=== PATIENT | female | born 2000 | race Caucasian/White ===

== ENCOUNTER 2023-11-12 18:23 | Emergency (ER) | payer OTHER, SELFPAY ==
[2023-11-12 18:26] VITALS: BP 126/77; PULSE 109; RESP 18; TEMP 37.3; O2SAT 99; BMI 23.4
--- NOTE | 2023-11-12 18:33 | ED_ITS ---
HPI - General Adult General Chief complaint: Fever Stated complaint: 21 weeks , fever Time Seen by Provider: 11/12/23 18:29 History of Present Illness HPI narrative: Patient presents to the emergency department complaining of a fever. Patient states she was seen in urgent care on wednesday and was tested for covid and tested negative . Patient called OB and was told to come into the ER if she had a fever of 100.3 or above after taking tylenol to get more of a work up. Took tylenol at 1300. Currently afebrile. 23-year-old young woman presenting to the emergency department with concern of fever. Currently at about 22 weeks without known complications. Symptoms started about 3 days ago with a temperature up to 101. It has waxed and waned over the last 3 days. Did measure temperature at today at 100.3 I believe and was recommended to come to the emergency department for further evaluation. She is having no pains. No shortness of breath. No dysuria. No noted hematuria. Was seen then 2 days ago in urgent care and reports being screen negative for COVID and influenza and with normal urinalysis. No sore throat or rash. Related Data Home Medications ?Medication ?Instructions ?Recorded ?Confirmed No Known Home Medications 11/12/23 11/12/23 Allergies Allergy/AdvReac Type Severity Reaction Status Date / Time amoxicillin Allergy Mild Verified 11/12/23 18:31 Review of Systems Status of ROS: Reports: 6 or more systems reviewed and unremarkable except as noted in History and below [facility] Social History How often do you have a drink containing alcohol: never AUDIT-C Alcohol total score: 0 Non-prescribed substance use: denies use Exam Narrative: Exam Narrative: Very pleasant. Appears in good energy. Breathing easily. Lungs are clear. Heart in mildly elevated rate with trace systolic murmur not inconsistent with . Her abdomen is appropriately gravid soft and nontender. There is no flank pain. Extremities are well perfused without significant edema. Skin is warm and dry without rash. Neck is supple without lymphadenopathy. Oropharynx is unremarkable. Const: Vital Signs, click to edit/add: Vital Signs - 24 hr 11/12/23 18:26 11/12/23 18:53 Temperature 99.2 F 99.2 F Pulse Rate [Right Pulse Oximeter] 109 H Respiratory Rate 18 Blood Pressure [Ri ght Upper Arm] 126/77 Pulse Oximetry 99 Oxygen Delivery Me thod Room Air Documenting provider has reviewed patient's vital signs: yes Course Vital Signs Vital signs: Initial Vital Signs Temperature 99.2 F 11/12/23 18:26 Temperature Source Temporal Artery Scan 11/12/23 18:26 Pulse Rate 109 H 11/12/23 18:26 Pulse Rhythm Regular 11/12/23 18:26 Pulse Strength 3+ Normal 11/12/23 18:26 Respiratory Rate 18 11/12/23 18:26 Blood Pressure 126/77 11/12/23 18:26 Blood Pressure Mean 93 11/12/23 18:26 Blood Pressure Position Sitting 11/12/23 18:26 Pulse Oximetry 99 11/12/23 18:26 Oxygen Delivery Method Room Air 11/12/23 18:26 Vital Signs Temperature 99.2 F 11/12/23 18:26 Pulse Rate 109 H 11/12/23 18:26 Respiratory Rate 18 11/12/23 18:26 Blood Pressure 126/77 11/12/23 18:26 Pulse Oximetry 99 11/12/23 18:26 Oxygen Delivery Method Room Air 11/12/23 18:26 Temperature 99.2 F 11/12/23 18:53 Pulse Rate 109 H 11/12/23 18:26 Respiratory Rate 18 11/12/23 18:26 Blood Pressure 126/77 11/12/23 18:26 Pulse Oximetry 99 11/12/23 18:26 Oxygen Delivery Method Room Air 11/12/23 18:26 Medical Decision Making MDM Narrative Medical decision making narrative: No focal symptoms here for this fever. Will would agree screen for COVID con sidering community prevalence and another urinalysis. Duration has not been long enough nor fever persistence enough I think to be more concerned at this point. Urinalysis with 1+ blood and 10-25 red cells on microscopic; negative nitrite and leukocyte esterase. Was afebrile on arrival. Ultimately COVID and influenza testing were negative. Would continue to monitor closely for persistent and elevating fever. See patient discharge plan for further discussion Lab Data Lab results reviewed: Yes I reviewed the patient's lab results Labs: Lab Results 11/12/23 11/12/23 Range/Units 18:40 19:05 Urine Color Yellow (Yellow) Urine Appearance Clear (Clear) Urine pH 7.0 (5.0-8.5) Ur Specific [place] 1.015 (1.000-1.030) Urine Protein Negative (Negative) Urine Glucose (UA) Negative (Negative) Urine Ketones Negative (Negative) Urine Blood 1+ A (Negative) Urine Nitrite Negative (Negative) Urine Bilirubin Negative (Negative) Urine Urobilinogen 1.0 (0.2-1.0) Ur Leukocyte Esterase Negative (Negative) Urine RBC 10-25 A (0-2) Urine WBC 2-5 (0-5) Ur Squamous Epith Cells Few (None-Few) Urine Bacteria Few A (None) SARS-CoV-2 (PCR) Negative SARS-CoV-2 (Negative) Influenza Type A (PCR) Negative PCR FLU A (Negative) Influenza Type B (PCR) Negative PCR FLU B (Negative) Discharge Plan Discharge Clinical Impression: Fever Patient Disposition: Home, Self-Care Condition: Stable Additional Instructions: stay well hydrated. monitor for inability to control fever, fever lasting past the weekend. can take up to 850mg of acetaminophen per dose. Prescriptions: No Action No Known Home Medications Follow Up/Referrals: Provider,Not a Local [Primary Care Provider] - Stand Alone Forms: [employer] Info Instructions
[2023-11-12 18:53] VITALS: TEMP 37.3
[2023-11-12 19:12] LABS: Appearance Urine Clear (Clear); Bilirubin Urine Negative (Negative); Blood Urine 1+ (Negative); Color Urine Yellow (Yellow); Glucose Urine Negative (Negative); Ketones Urine Negative (Negative); Leukocyte Esterase Urine Negative (Negative); Nitrite Urine Negative (Negative); Protein Urine Negative (Negative); Specific Gravity Urine 1.015 (1.000-1.030)
[2023-11-12 19:34] LABS: PCR FLU A Negative PCR FLU A (Negative); PCR FLU B Negative PCR FLU B (Negative); SARS PCR* Negative SARS-CoV-2 (Negative)
[2023-11-12 19:35] LABS: Bacteria Urine Few; Squamous Epithelial Cell Urine Few (None-Few)
== END 2023-11-12 19:53 | disposition home or self-care (01) ==
PROVIDERS: Emergency Provider Family Medicine
DX: R50.9 Fever, unspecified (principal)
CPT/HCPCS: 81001; 87086; 87631; 99282; 99283; 99284

== ENCOUNTER 2024-05-22 20:06 | Emergency (ER) | payer OTHER, SELFPAY ==
--- OUTSIDE RECORDS SUMMARY | 2024-05-22 20:08 | XMS_ITS | Clinical Summary ---
Author Organization [employer] [facility] Address [address] [place] [id number] Care Team Providers Care Facer Operator Name Role Phone Pcp, No Primary Care Provider Unavailabl e Allergies Active Allergy Reactions Criticality Noted Date Comments Amoxicillin Rash Low 09/13/2002 Diffuse rash one day on Amox. As a baby Has taken cephalosporins without issues Medications vit/iron fum/folic ac ( 1 + 1 ORAL) Take 1 Tablet by mouth once daily. Active acetaminophen (TYLENOL EXTRA STRGTH) 500 mg tabletIndicati ons: (spontaneous vaginal delivery) Take 2 Tablets (1,000 mg) by mouth every 6 hours. Max acetaminophen dose: 4000mg in 24 hrs. 100 Tablet 03/27/2024 7:53 AM REHABILITATION THERAPY AIDE 5 Active ibuprofen (ADVIL; MOTRIN) 600 mg tabletIndicati ons: (spontaneous vaginal delivery) Take 1 Tablet (600 mg) by mouth every 6 hours. Maximum of 3200 mg in 24 hours. 100 Tablet 03/27/2024 7:53 AM REHABILITATION THERAPY AIDE 5 Active sennosides (SENNA) 8.6 mg tabletIndicati ons: (spontaneous vaginal delivery) Take 1-2 Tablets (8.6-17.2 mg) by mouth 2 times daily if needed for Constipation. 60 Tablet 03/27/2024 7:53 AM REHABILITATION THERAPY AIDE 5 Active Active Problems Problem Noted Date Diagnosed Date (spontaneous vaginal delivery) 03/26/2024 Encounter for elective induction of labor 2024 Anemia 12/22/2023 Susceptible to varicella (non-immune), currently 11/17/2023 Encounter for supervision of normal first in third trimester 08/05/2023 Attention deficit hyperactivity disorder, combin ed type 05/02/2019 Keratosis pilaris 12/28/2015 Encounters Date Type Department Care Team Description 03/28/2024 Telephone [facility] [place] [address] [facility] [address] [place] [address] [facility] 03/26/2024 9:00 AM REHABILITATION THERAPY AIDE Anesthesia Event [facility] [address] [place] [address] Madison Fish MD 03/25/2024 7:33 PM REHABILITATION THERAPY AIDE - 03/27/2024 5:45 PM REHABILITATION THERAPY AIDE Hospital Encounter [facility] [address] [place] [address] Krista Silva MD Abdi, Mayra Tuttle MD (spontaneous vaginal delivery) (Primary Dx) Discharge Disposition: Home Self Care 03/25/2024 Travel from Last 3 Months Social History Tobacco Use Types Packs/Day Years Used Date Smoking Tobacco: Never Smokeless Tobacco: Never Tobacco Cessation:Counseling Given: Not Answered Alcohol Use Standard Drinks/Week Comments Not Currently 0 (1 standard drink = 0.6 oz pur e alcohol) Social Connections Answer Date Recorded Do you often feel lonely or isolated from those around you? 0 03/26/2024 Financial Resource Strain Answer Date R ecorded Difficulty of Paying Living Expenses 3 03/26/2024 Difficulty of Paying Living Expenses Not on file 03/26/2024 Food Insecurity Answer Date Recorded Do you worry your food will run out before you are able to buy more? 1 03/26/2024 Transportation Needs Answer Date Record ed Does lack of transportation keep you from medica l appointments? 1 03/26/2024 Does lack of transportation keep you from work, meetings or getting things that you need? 1 03/26/2024 Housing Stability Answer Date Recorded What is your housing situation today? 1 03/26/2024 Interpersonal Safety Answer Date Record ed Are you being hit, kicked, p ushed or yelled at (see row info)? No 03/25/2024 Interpersonal Safety Abuse 12 - 18 Not on file 03/25/2024 Interpersonal Safety Ambulatory Vulnerability No t on file 03/25/2024 Utilities Answer Date Recorded Do you have trouble paying f or utilities (for example, heat, electricity, water, phone)? 1 03/26/2024 Comments No Sex and Gender Information Value Date Recorded Sex Assigned at Not on file Legal Sex Female 5:32 PM REHABILITATION THERAPY AIDE Gender Identity Not on file Sexual Orientation Not on file Obstetrics History Para Term AB IAB SAB Ectopic Multiple Livin g Live Births 1 1 1 0 1 1 Date Outcome GA Total Labor Labor/2nd/3rd Weight Sex Type Anes PTL Rosa A1 A5 Name Clin 2024 Term 40w 4d 15h 58m 15h 00m/0h 56m/0h 02m 4.23 kg (9 lb 5.2 oz) M Vag-S pont Epidur al Livin g 9 9 Walker Deisy Anthony, Mayra castro MD Complications:None Delivery Location:Hospital ( [address]) Comments: Summary Episode Dates Number of Fetuses Estimated Date of Delivery 03/15/2024 - Present (05/22/2024) 1 03/22/2024 (set by Rafia Conner RN on 03/25/2024 based on Last Menstrual Period on 06/16/2023 (Exact Date)) Dating Summary Based On IZZY GA Diff Last Menstrual Period on 06/16/2023 (Exact Date) 03/22/2024 Working Overview and Plan :Kothari sex:Male Support person:Randy, boyfriend Delivery Plans Planned delivery method:Vaginal Vitals Pregravid Weight Height TWG (As of 05/22/2024) Pregrav id BMI 1.676 m (5' 6) Date GA Fund Present FHR Mvmt BP Weight Edema Alb Glu Ket Dil/ Eff/Sta 5 40w4d Inpatient data not displayed here. See encounter summary. 5 40w4d Inpatient data not displayed here. See encounter summary. 5 40w4d Inpatient data not displayed here. See encounter summary. Notes Progress Notes - Hospital En counter - 03/27/2024 - GA:40w4d 03/27/2024 - 40w4d - Domenica Oakley RN Problem: DISCHARGE PLANNING Goal: DISCHARGE PREPARATION IS COMPLETED IN A TIMELY MANNER Outcome: Progressing Note: Vaginal Discharge Data: Vital signs stable, afebrile and assessments within normal limits. Tolerating activity and diet. Voiding without difficulty. Pain within patient determined acceptable limits. Perineum appears to be healing well. Positive attachment behaviors observed. Discharge outcomes on the care plan met. Action: Review of care plan, teaching sheet and discharge instructions done with patient. Response: Discharged at 1745 via Ambulatory BILITATION THERAPY AIDE 03/27/2024 - 40w4d - Yovani Anthony MD Day 1: Vaginal Delivery Patient Active Problem List Diagnosis Code Encounter for elective induction of labor Z34.90 Anemia D64.9 Attention deficit hyperactivity disorder, combined type F90.2 Keratosis pilaris L85.8 Susceptible to varicella (non-immune), currently O09.899, Z28.39 Encounter for supervision of normal first in third trimester Z34.03 (spontaneous vaginal delivery) O80 Christal Davison is doing well. Pain well controlled with current medication management. Lochia moderate. Eating, drinking, voiding and ambulating without issues. Mood is good. Baby is doing well. Working on /pumping. O. Vitals: 03/26/24 1600 03/26/24 1610 03/26/24 1700 03/27/24 0041 BP: 108/56 112/62 123/63 101/54 Cuff Size: Adult Regular Adult Regular Pulse: 85 90 92 68 Resp: 16 16 Temp: 98.6 F (37 C) 97.8 F (36.6 C) SpO2: 97% 97% Weight: Height: Gen: NAD Abdomen: soft, non tender, fundus firm below U Pelvic: deferred Extremities: no edema/calf tenderness Labs: Recent Labs 03/25/24 2145 HGB 11.8 L A/P. Laney Hammond is a pleasant 23-year-old female P1 PPD #1 s/p , uncomplicated. Doing well. Plan routine cares. support. To discuss contraception at routine visit. Dispo: d/c home later this afternoon. To follow up for routine visit in 6 weeks. Mayra Anthony MD .................... 03/27/2024 7:28 AM DOS 03/27/2024 BILITATION THERAPY AIDE 03/27/2024 - 40w4d - Hayley Pedro RN Student charting has been reviewed and approved for this patient s record. BILITATION THERAPY AIDE 03/26/2024 - 40w4d - Danita Kwok RN Laney Hammond transferred to [facility] at 1640 in stable condition. Baby is transferred with mother. Patient meets criteria for discharge after epidural as demonstrated by return to pre-delivery vital sign range, sensory and motor response, and ability to ambulate. Was patient able to void post delivery? Yes Report given to PPRN at 1645 and security bands and transmitter double checked. Danita Kwok RN .................... 03/26/2024 5:14 PM BILITATION THERAPY AIDE 03/26/2024 - 40w4d - Alesha Mckeon RN Problem: PROGRESSION OF LABOR Goal: PATIENT DEMONSTRATES NORMAL PROGRESSION THROUGHOUT LABOR AND WITHOUT COMPLICATIONS Outcome: Met Goal Goal: PRESUMED ADEQUATE OXYGENATION THROUGHOUT LABOR AND Outcome: Met Goal Goal: PATIENT DEMONSTRATES PHYSIOLOGIC STABILITY Outcome: Met Goal Problem: MATERNAL STABILITY Goal: PATIENT MAINTAINS GENERAL BODY SYSTEM STABILITY THROUGHOUT Outcome: Met Goal Problem: HEMODYNAMIC STABILITY Goal: BLOOD PRESSURE WILL BE MAINTAINED BETWEEN DEFINED PARAMETERS THROUGHOUT HOSPITAL STAY. Outcome: Met Goal Problem: NEUROLOGIC STABILITY Goal: PATIENT MAINTAINS BASELINE NEURO STATUS AND SEIZURE FREE THROUGHOUT HOSPITALIZATION Outcome: Met Goal Problem: STABILITY Goal: PATIENT HAS A NONPALPABLE BLADDER. Outcome: Met Goal Problem: RISK FOR INFECTION Goal: PATIENT AND FETUS REMAIN FREE FROM S/S INFECTION Outcome: Met Goal Problem: EMOTIONAL Goal: PATIENT/FAMILY REPORTS A POSITIVE EXPERIENCE. Outcome: Met Goal Goal: PATIENT/FAMILY DEMOS ATTACHMENT/BONDING BEHAVIORS. Outcome: Met Goal Problem: PAIN/COMFORT Goal: PATIENT'S PAIN IS </= STATED ACCEPTABLE COMFORT GOAL. Outcome: Met Goal Goal: OXYGEN PATHWAY IS MAINTAINED DURING REGIONAL ANESTHESIA/ANALGESIA ADMINISTRATION Outcome: Met Goal Problem: SAFETY Goal: INFANT/MOTHER SAFETY IS MAINTAINED DURING LABOR AND DELIVERY PERIOD Outcome: Met Goal Goal: PATIENT/FAMILY UNDERSTANDS LABOR/DELIVERY PROCESS AND CARES INVOLVED. Outcome: Met Goal Goal: CRITICAL LAB VALUES REPORTED TO PROVIDERS NECESSARY THROUGHOUT HOSPITALIZATION Outcome: Met Goal Goal: PATIENT WILL BE KNOWLEDGEABLE REGARDING NEWLY ORDERED MEDS, INTENDED AND SIDE EFFECTS OF EACH Outcome: Met Goal Data: Boy baby born at 1426. Maternal medical/ history and risk factors are: anemia, ADHD, varicella non-immune. Significant maternal medications: oxytocin. GBS: neg. Interventions at were mutual fundal check with provider, provider repaired tear. Apgars 9 and 9 ROM X 2 hours: Fluid by Observation: clear. Delivery remarkable for: . Response: Positive bonding behaviors observed. Present in room at delivery: jt Nieves Dr. Abdi, Betsy RN, Leana RODRIGUEZ. BILITATION THERAPY AIDE 03/26/2024 - 40w4d - Yovani Anthony MD Labor Progress Note Patient Active Problem List Diagnosis Code Encounter for elective induction of labor Z34.90 Anemia D64.9 Attention deficit hyperactivity disorder, combined type F90.2 Keratosis pilaris L85.8 Susceptible to varicella (non-immune), currently O09.899, Z28.39 Encounter for supervision of normal first in third trimester Z34.03 Christal Davison is starting to get more comfortable s/p epidural placement. O. Vitals: 03/26/24 1015 03/26/24 1030 03/26/24 1045 03/26/24 1100 BP: 115/70 116/64 113/70 112/66 Pulse: 75 76 77 75 Resp: Temp: SpO2: Weight: Height: Gen: NAD Abdomen: Soft, gravid, non tender Pelvic: deferred (last exam by RN /-1 @ 0755) FHT: cat 1 [place]: q 3-4.5 min Labs: Rh pos, GBS neg A/P. Laney Hammond is a at 40w4d admitted for elective induction of labor. #) Labor S/p cook cervical balloon catheter and 2 doses of oral misoprostol with improvement in cervical exam. Plan pitocin for continued augmentation of labor. Titrate as appropriate. Consider AROM for augmentation of labor. #) Fetus Cat 1 tracing, continuous monitoring. EFW 76%ile at 36w5d. #) GBS Negative No Amp indicated #) Pain Epidural in place, working well. Mayra Anthony MD .................... 03/26/2024 9:08 AM DOS 03/26/2024 Addendum: Laney remains comfortable with epidural. SVE 7/80/0. After informed consent, AROM performed for clear fluid. Pitocin at 2 mU. FHT cat 1. Continue to monitor. Mayra Anthony MD .................... 03/26/2024 1:01 PM BILITATION THERAPY AIDE BILITATION THERAPY AIDE BILITATION THERAPY AIDE 03/26/2024 - 40w4d - Rafia Conner RN Data: Patient admitted to room 3632 at 1940 . Pt is a . record reviewed, OB/Medical history and risk factors are significant for varicella non immune, ADHD, and anemia. Gestational age 40.3. Vital Signs per doc flowsheet. movement present. Patient reports elective induction as reason for admission. Support persons Randy, boyfriend present. Action: Verbal consent for EFM, external monitors applied. Admission assessment completed. Patient and support persons educated on labor process. Patient instructed to report change in movement, contractions, vaginal leaking of fluid or bleeding, abdominal pain, or any concerns related to the to her nurse/physician. Patient oriented to room, call light within reach. Response: Dr Silva informed of patient's arrival. Patient verbalized understanding of education and verbalizes agreement with plan. Patient coping with labor currently, open to an epidural when labor is more advanced. Plan: Plan per physician is cook catheter and PO cytotec as contractions pattern allows. Rafia Conner RN .................... 03/25/2024 10:42 PM BILITATION THERAPY AIDE Last Filed Vital Signs Vital Sign Reading Time Taken Comments Blood Pressure 112/55 03/27/2024 1:47 PM REHABILITATION THERAPY AIDE Pulse 68 03/27/2024 1:47 PM REHABILITATION THERAPY AIDE Temperature 36.7 C (98 F) 03/27/2024 1:47 PM REHABILITATION THERAPY AIDE Respiratory Rate 18 03/27/2024 1:47 PM REHABILITATION THERAPY AIDE Oxygen Saturation 98% 03/27/2024 1:47 PM REHABILITATION THERAPY AIDE Inhaled Oxygen Concentration - - Weight 75.6 kg (166 lb 11.2 oz) 03/25/2024 7:42 PM REHABILITATION THERAPY AIDE Height 167.6 cm (5' 6) 03/25/2024 7:42 PM REHABILITATION THERAPY AIDE Body Mass Index 26.91 03/25/2024 7:42 PM REHABILITATION THERAPY AIDE Plan of Treatment Health Maintenance Due Date Last Done Comments Tdap 2012 Depression screening for age 12+ 2013 HPV series for age 9-26 (1 - 3-dose series) 2016 BMI (ht and wt on same day) for age 18+ 06/13/2019 Hepatitis C screening for ag e 18-79 06/13/2019 Tetanus booster 2021 Pap test for age 21-65 2022 COVID-19 vaccine series (2023- season) 2023 02/19/2022, 11/12/2020, 10/11/2020 Influenza Vaccine (#1) 2023 HIV for age 15-65 Completed 08/05/2023 Pneumococcal series for age 6-49 Aged Out No longer eligible b ased on patient's age to complete this topic Procedures Procedure Name Priority Date/Time Associated Diagnosis Comments HCHG TUBING PR5 Routine 03/26/2024 9:00 AM REHABILITATION THERAPY AIDE HCHG LABOR EPIDURAL INITIAL Routine 03/26/2024 9:00 AM REHABILITATION THERAPY AIDE EPIDURAL BLOCK Routine 03/26/2024 9:00 AM REHABILITATION THERAPY AIDE HCHG DRSG PR1 Routine 03/26/2024 9:00 AM REHABILITATION THERAPY AIDE HCHG KIT EPIDURAL PR10 Routine 03/26/2024 9:00 AM REHABILITATION THERAPY AIDE TREPONEMA PALLIDUM Today 03/25/2024 9: 46 PM REHABILITATION THERAPY AIDE TYPE & SCREEN Today 03/25/2024 9:45 PM REHABILITATION THERAPY AIDE PLATELET COUNT Today 03/25/2024 9:45 PM REHABILITATION THERAPY AIDE HEMOGLOBIN Today 03/25/2024 9:45 PM REHABILITATION THERAPY AIDE HEMOGLOBIN EXTERNAL Routine 02/28/2024 4 :46 PM REHABILITATION THERAPY AIDE HIV EXTERNAL Routine 08/05/2023 12:06 PM CDT from Last 3 Months or Most Recently Relevant to Health Maintenance Results * HCHG KIT EPIDURAL PR10, HCHG DRSG PR1, EPIDURAL BLOCK, HCHG LABOR EPIDURAL INITIAL, HCHG TUBING PR5(03/26/2024 9:00 AM REHABILITATION THERAPY AIDE) Narrative Madison Fish MD - 03/26/2024 9:00 AM REHABILITATION THERAPY AIDE Madison Fish MD 03/26/2024 9:14 AM Labor Analgesia Labor Analgesia Type: epidural Patient location during procedure: OB Time Requested: 03/26/2024 8:55 AM Start time: 03/26/2024 9:00 AM End time: 03/26/2024 9:13 AM Diagnosis: planned vaginal delivery and labor pain ASA: 2 Completed: patient identified, risks and benefits discussed, timeout performed, chloraprep used and completely dried prior to procedure and surgical consent Patient position: sitting Patient monitoring: continuous pulse oximetry and blood pressure Approach: midline Prep: chloraprep and sterile drape Lumbar location: L3-4 Skin Infiltration: lidocaine 1% REAL: saline Epidural Location: lumbar Needle and Epidural Catheter Needle type: Tuohy Needle gauge: 17 G Needle length: 3.5 in Needle insertion depth: 4 cm Catheter type: closed tip Catheter size: 19 G Aspiration of Catheter: negative Catheter at skin depth: 10 cm Test dose: lidocaine 1.5% with epinephrine 1:200,000 Test dose amount: 3 ml Test dose result: negative Assessment Events: no complications Madison Fish MD ANESTHESIA PX NOTE ORD ERABLES Final Result * Treponema Pallidum (03/25/2024 9:46 PM REHABILITATION THERAPY AIDE) TREPONEMA PALLIDUM Non-Reacti ve Non-Reacti ve 03/25/2024 10:45 PM REHABILITATION THERAPY AIDE [facility] [employer] [facility] Blood BLOOD SPECIMEN / Unknown Butterfly / Unknown 03/25/2024 9:46 PM REHABILITATION THERAPY AIDE 03/25/2024 10:12 PM REHABILITATION THERAPY AIDE Krista Silva MD SEND OUTS Final Resul t Performing Organization Address City/[facility]/ZIP Co de Phone Number [facility] [address] [place] [address], * TYPE & SCREEN (03/25/2024 9:45 PM REHABILITATION THERAPY AIDE) ABORH O Rh Positive 03/25/2024 10:56 PM REHABILITATION THERAPY AIDE [facility] BLOOD BANK ANTIBODY SCREEN Negative Negative 03/25/2024 10:56 PM REHABILITATION THERAPY AIDE [facility] [employer] LAB-[facility] BLOOD BANK SPECIMEN EXPIRATION DATE/TIME 03/28/24 23:59 03/25/2024 10:56 PM REHABILITATION THERAPY AIDE [facility] [employer]-[facility] BLOOD BANK Blood BLOOD SPECIMEN / Unknown Butterfly / Unknown 03/25/2024 9:45 PM REHABILITATION THERAPY AIDE 03/25/2024 10:12 PM REHABILITATION THERAPY AIDE Krista Silva MD BLOOD BANK Final Resul t [facility]ock[facility]TR[facility] BLOOD BANK [address] [place] [id number] [place] [address] * (ABNORMAL) Platelet Count (03/25/2024 9:45 PM REHABILITATION THERAPY AIDE) PLATELET COUNT 164 140 - 440 thou/cu mm 03/25/2024 10:18 PM REHABILITATION THERAPY AIDE [facility] TRAL LABORATORY MPV 11.3(H) 6.5 - 11.0 fL 03/25/2024 10:18 PM REHABILITATION THERAPY AIDE [facility] TRA LABORATORY Blood BLOOD SPECIMEN / Unknown Butterfly / Unknown 03/25/2024 9:45 PM REHABILITATION THERAPY AIDE 03/25/2024 10:12 PM REHABILITATION THERAPY AIDE Krista Silva MD HEMATOLOGY Final Resul t [facility] [address] [place] [id number], [place] * (ABNORMAL) Hemoglobin (03/25/2024 9:45 PM REHABILITATION THERAPY AIDE) HEMOGLOBIN 11.8(L) 12.0 - 16.0 g/dL 03/25/2024 10:18 PM REHABILITATION THERAPY AIDE [facility] MCV 93 80 - 100 fL 03/25/2024 10:18 PM REHABILITATION THERAPY AIDE [facility] Blood BLOOD SPECIMEN / Unknown Butterfly / Unknown 03/25/2024 9:45 PM REHABILITATION THERAPY AIDE 03/25/2024 10:12 PM REHABILITATION THERAPY AIDE Krista Silva MD HEMATOLOGY Final Resul t [facility] [address] [place] [id number], [place] * HEMOGLOBIN EXTERNAL (02/28/2024 4:46 PM REHABILITATION THERAPY AIDE) EXTERNAL HEMOGLOBIN 10.9 g/dL [facility] Blood BLOOD SPECIMEN / Unknown [facility] LABORAT[facility] Final Result [facility] [employer] [facility]AL LAB [address] [place] [address] * HIV EXTERNAL (08/05/2023 12:06 PM CDT) EXTERNAL HIV Negative [facility] [employer] C[facility]AL LAB Blood BLOOD SPECIMEN / Unknown [facility] Final Result [employer] [facility] [address] [place] [address] from Last 3 Months or Most Recently Relevant to Health Maintenance Insurance [facility] [employer] MEDICAID Advance Directives * Full Code (Latest Code Status on File) Date Activated Date Inactivated Comments 03/25/2024 8:11 PM 03/27/2024 8:07 PM Question Answer Comments Code Status Discussion: Reviewed Preferences Care Teams Facer Operator Relationship Specialty Start Date End Date Pcp, No . PCP - General 03/15/24
--- OUTSIDE RECORDS SUMMARY | 2024-05-22 20:08 | XMS_ITS | Clinical Summary ---
Author Organization [employer] Address [address], [place] [address] Care Team Providers Care News Cameraman Name Role Phone Josefina Bolanos MD Primary Care Provider [phone] Source Comments You are receiving this document as you are listed as the primary care provider,follow-up provider, or the patient has been referred to you for consultation.This is in compliance with the Medicare andMedicaid EHR Incentive Program,which states Providers who transition their patient to another setting of careor provider of care or refers their patient to another provider of care shouldprovide summary care record for each transition of care or referral. [employer] Allergies Active Allergy Reactions Criticality Noted Date Comments Amoxicillin Rash Low 09/13/2002 Diffuse rash one day on Amox. As a baby Has taken cephalosporins without issues Medications * This document contains information received from the source organization and may not represent a complete record from that organization. amphetamine-dext roamphetamine (ADDERALL) 10 MG tablet Take 1 Tablet (10 mg) by mouth two times a day. 180 Tablet 4 Active Additional Information Patient not taking.Reported on 03/20/2024 Prenat MV-Min w/[id number]-[id number]-UJR ( COMPLETE OR) Active Misc. Devices (BREAST PUMP) Breast pump 1 Each 4 Active Additional Information Patient not taking.Reported on 03/20/2024 norethindrone, contraceptive, (MICRONOR) 0.35 MG tabletIndication s:Encounter for BCP ( control pills) initial prescription Take 1 Tablet (0.35 mg) by mouth daily. 84 Tablet 3 5 05/16/19 26 Active Active Problems Problem Noted Date Diagnosed Date Anemia 12/22/2023 Susceptible to varicella (non-immune), currently 11/17/2023 Encounter for supervision of normal first in first trimester 08/05/2023 CAREPLAN: CONTROLLED SUBSTANCE 11/08/2019 Overview (12/19/2022): OK for adderall 10 mg PO BID, #180 every 90 days, good from 11/28-11/29. Josefina Bolanos MD 12/18/2022, 3:10 PM Attention deficit hyperactivity disorder, combin ed type 05/02/2019 Keratosis pilaris 12/28/2015 Resolved Problems Problem Noted Date Diagnosed Date Resolved Date Recurrent urinary tract infection 08/05/2023 02/03/2024 Encounters Date Type Department Care Team Description 05/22/2024 4:20 PM CDT E-Visit Obstetrics & Gynecology at [address] [address] Hernandez Banegas MD Chief Comp: Medication Questions 05/15/2024 1:40 PM CDT Visit Obstetrics & Gynecology at [address] [phone] Shagufta Galvez, IRRIGATION ENGINEER, IMMIGRATION SPECIALIST POST- 03/20/2024 9:00 AM BUSINESS SERVICES TECH Routine Obstetrics & Gynecology at [address] [address] Hernandez Banegas MD SUBSEQUENT VISIT 03/15/2024 4:20 PM BUSINESS SERVICES TECH Routine Obstetrics & Gynecology at [address] [address] Hernandez Banegas MD Ob Exam Subsequent (Pn care.39w0d/Discuss Lab results) 03/09/2024 4:00 PM BUSINESS SERVICES TECH E-Visit Obstetrics & Gynecology at [address] [address] Kaelyn Mccallum APRN, CNP Chief Comp: RESULTS, TEST 03/09/2024 11:50 AM BUSINESS SERVICES TECH Lab Visit Laboratory at [address] [address] Elevated blood pressure affecting in third trimester, antepartum 03/09/2024 11:40 AM BUSINESS SERVICES TECH Routine Obstetrics & Gynecology at [address] [address] Kaelyn Mccallum APRN, CNP 03/09/2024 Telephone Obstetrics & Gynecology at [address] [address] Kaelyn Mccallum APRN, CNP Pre-visit Planning 02/28/2024 4:40 PM BUSINESS SERVICES TECH Lab Visit Laboratory at [address] [address] Anemia, unspecified type 02/28/2024 4:20 PM BUSINESS SERVICES TECH Routine Obstetrics & Gynecology at [address] [address] Hernandez Banegas MD SUBSEQUENT VISIT 02/28/2024 2:40 PM BUSINESS SERVICES TECH Ancillary Procedure operations representative Ultrasound at [address] [address] Hernandez Banegas MD Encounter for supervision of normal first in third trimester; Uterine size-date discrepancy in third trimester 02/23/2024 1:00 PM BUSINESS SERVICES TECH E-Visit Obstetrics & Gynecology at [address] [address] Hernandez Banegas MD Dx: Anemia, unspecified type (Primary Dx) from Last 3 Months Immunizations Immunization Administration Dates Next Due 9vHPV (Gardasil 9) 11/05/2017,12/18/2015 Adult RSV Abrysvo 02/21/2024 DTaP 06/16/2006, 4,2001,2001,2001 Flu Vac (3+ yrs) 02/22/2012, 7,04/27/2006,2004 Flu Vac Preserv Free (6-35 mo) 03/06/2003,2002 Fluzone Qiv Multidose Vial 0 .25 (6-35 Mos) 01/15/2022 H1N1 MIV CSL 3+ Yr Presev-fr ee (Inj)([facility]) 02/22/2009 Hib/HBV 06/13/2002,2001,2001 IPV (Polio) 06/16/2006, 2,2001,2001 Influenza (Flucelvax) 12/03/2022 Influenza (Flucelvax), Prese rv Free QIV 12/03/2022 Influenza IIV4 (Quadrivalent ) 0.5mL (73579) 12/18/2015,01/11/2015 Influenza Vaccine, Nasal ([facility]) 02/22/2009 Influenza ccIIV3 6 months+ (Flucelvax) 11/22/2023 MCV4 (Menactra) 07/17/2013 MCV4 Menveo 2m.+ (two vial) 11/05/2017 MMR 06/16/2006,10/18/2002 Moderna Bivalent 12+ 02/19/2022 Moderna Monovalent 12+ 11/12/2020,10/11/2020 Pneumococcal 7, PED 2001,2001,2001 TB Skin Test (PPD) 03/10/2022,02/24/2022 Tdap 12/22/2023,07/17/2013 Varicella 12/07/2006,10/18/2002 Family History Medical History Relation Name Comments High Cholesterol Father Hypertension Father No Known Problems Mother No Known Problems Brother Hypertension Maternal Grandfather Cancer, Melanoma Maternal Grandmother Ocu lar - spread to liver No Known Problems Sister Cataract Negative Family History Glaucoma Negative Family History Macular Degeneration Negative Family History Relation Name Status Comments Father Alive Mother Alive Brother Alive Maternal Grandfather Alive Maternal Grandmother Paternal Grandfather Alive Paternal Grandmother Alive Sister Alive Social History Tobacco Use Types Packs/Day Years Used Date Smoking Tobacco: Never Passive Smoke Exposure: Never Smokeless Tobacco: Never Tobacco Cessation:Counseling Given: No Alcohol Use Standard Drinks/Week Comments Not Currently 0 (1 standard drink = 0.6 oz pure alcohol) non since positive prengnancy test PHQ-2 Answer Date Recorded PHQ-2 Score 0 03/10/2023 Depression Answer Date Recor ded Last EPDS Total Score 8 05/15/2024 Last EPDS Self Harm Result Not on file 05/15 Comments No Sex and Gender Information Value Date Recorded Sex Assigned at Not on file Legal Sex Female 5:19 AM CDT Gender Identity Not on file Sexual Orientation Not on file Occupation Industry Job Start Date Job End Date student Not on file Not on file Not on file Last Filed Vital Signs Vital Sign Reading Time Taken Comments Blood Pressure 113/78 05/15/2024 1:32 PM CDT Pulse 62 05/15/2024 1:32 PM CDT Temperature 36.7 C (98 F) 11/15/2023 9:10 AM CDT Respiratory Rate 16 11/10/2023 5:29 PM CDT Oxygen Saturation 99% 11/10/2023 5:29 PM CDT Inhaled Oxygen Concentration - - Weight 61.1 kg (134 lb 12.8 oz) 05/15/2024 1:32 PM CDT Height 169 cm (5' 6.54) 08/05/2023 1:14 PM CDT Body Mass Index 21.41 08/05/2023 1:14 PM CDT Plan of Treatment Health Maintenance Due Date Last Done Comments Careplan Update 2001 MenB Immunization Discussion 2001 Prescription Monitoring Program 2001 COVID-19 Vaccine ( season) 2023 02/19/2022, 11/12/2020, 10/11/2020 Adult Preventive Visit 12/15/2023 , 02/19/2022, 11/05/2017, Additional history exists Chlamydia 08/04/2024 08/05/2023, 07/08, 12/14/2022, Additional history exists Drug Screen 08/04/2024 08/05/2023 Cervical Cancer Screening 12/14/2025 12/14/2022 DTaP/Tdap/Td (8 - Tdap) 12/21/2033 12/22/19 24, 07/17/2013, 06/16/2006, Additional history exists Zoster/Shingles (1 of 2) 06/13/2051 Pneumococcal Aged Out 2001, 10/06, 2001 No longer eligible based on patient's age to complete this topic HepB Completed 06/13/2002, 10/06, 2001 Hib Completed 06/13/2002, 10/06, 2001 IPV (Polio) Completed 06/16/2006, 12/06, 2001, Additional history exists Varicella Completed 12/07/2006, 10/18/2002 HPV Vaccine Completed 11/05/2017, 12/18/2015 MCV4 Completed 11/05/2017, 07/17/2013 HIV Screening (Preventive Services) Completed 08/05/2023, 12/14/2022, 02/19/2022 Hep C Screening (Preventive Services) Completed 08/05/2023, 02/19/2022 Influenza Completed 11/22/2023, 11/07, 12/03/2022, Additional history exists HepA Aged Out No longer eligi ble based on patient's age to complete this topic Procedures Procedure Name Priority Date/Time Associated Diagnosis Comments TP/CREA RATIO, URINE Same Day 03/09/2024 12:04 PM BUSINESS SERVICES TECH Elevated blood pressure affecting in third trimester, antepartum PLATELETS Same Day 03/09/2024 11:59 AM BUSINESS SERVICES TECH Elevated blood pressure affecting in third trimester, antepartum URIC ACID Same Day 03/09/2024 11:59 AM BUSINESS SERVICES TECH Elevated blood pressure affecting in third trimester, antepartum CREATININE / GFR Same Day 03/09/2024 11:5 9 AM BUSINESS SERVICES TECH Elevated blood pressure affecting in third trimester, antepartum ALT (SGPT) Same Day 03/09/2024 11:59 AM BUSINESS SERVICES TECH Elevated blood pressure affecting in third trimester, antepartum AST Same Day 03/09/2024 11:59 AM BUSINESS SERVICES TECH Elevated blood pressure affecting in third trimester, antepartum HEMOGLOBIN, BLOOD Routine 02/28/2024 4:4 6 PM BUSINESS SERVICES TECH Anemia, unspecified type MEMBRANE RUPTURE DETECTION Waiting 02/28/2024 4:40 PM BUSINESS SERVICES TECH Amniotic fluid leaking OBGYN THIRD TRIMESTER ULTRASOUND Routine 02/28/2024 3:05 PM BUSINESS SERVICES TECH Uterine size-date discrepancy in third trimester CHLAMYDIA & GC (14 YEARS & OLDER) Routine 08/05/2023 1:11 PM CDT Encounter for supervision of normal first in first trimester RAPID DRUG PANEL, URINE (WITH CONFIRMATION) Routine 08/05/2023 12:13 PM CDT Encounter for supervision of normal first in first trimester HIV 1/2 AG/AB 4TH GEN Routine 08/05/2023 12:06 PM CDT Encounter for supervision of normal first in first trimester HEPATITIS C ANTIBODY, WITH REFLEX Routine 08/05/2023 12:06 PM CDT Encounter for supervision of normal first in first trimester CYTOLOGY (PAP) Routine 12/14/2022 2:04 PM CDT Screening for malignant neoplasm of cervix from Last 3 Months or Most Recently Relevant to Health Maintenance Results * (ABNORMAL) TP/Crea Ratio, Urine (03/09/2024 12:04 PM BUSINESS SERVICES TECH) TP/Creat Ratio, Urine Random 0.34(H) 0.00 - 0.20 03/09/2024 4:00 PM [facility] Total Protein, Urine, Random 12 0 - 14 mg/dL 03/09/2024 4:00 PM [facility] Creatinine, Urine, Random 35 >20 mg/dL mg/dL 03/09/2024 4:00 PM [facility] Urine Non-blood Collection / Unknown 03/09/2024 12:04 PM BUSINESS SERVICES TECH 03/09/2024 12:04 PM BUSINESS SERVICES TECH Narrative [facility] - 03/09/2024 4:00 PM BUSINESS SERVICES TECH Low urine creatinine values coupled with low urine protein values can artifactually increase the urine protein/creatinine results. Correlate results of ratio with creatinine results. Kaelyn Mccallum APRN, CNP LAB_1 Final Re sult Performing Organization Address [facility] Co de Phone Number [facility] [address] * Creatinine / GFR (03/09/2024 11:59 AM BUSINESS SERVICES TECH) Creatinine 0.61 0.55 - 1.02 mg/dL 03/09/2024 3:48 PM BUSINESS SERVICES TECH [facility] GFR, Estimated >60 >60 mL/min/1. 73m2 03/09/2024 3:48 PM [facility]3] LAB Blood Venipuncture / Unknown 03/09/2024 11:59 AM BUSINESS SERVICES TECH 03/09/2024 12:00 PM BUSINESS SERVICES TECH Kaelyn Mccallum APRN, CNP LAB_1 Final Re sult Performing Organization Address [facility] Co de Phone Number [facility] [address] [place] [address] * Platelets (03/09/2024 11:59 AM BUSINESS SERVICES TECH) Platelets 177 150 - 450 x10(9)/L 03/09/2024 12:03 PM BUSINESS SERVICES TECH [place] [facility] Blood Venipuncture / Unknown 03/09/2024 11:59 AM BUSINESS SERVICES TECH 03/09/2024 12:00 PM BUSINESS SERVICES TECH Kaelyn Mccallum APRN, CNP LAB_1 Final Re sult Performing Organization Address [facility]/ZIP Co de Phone Number [place] [facility] [address] [place] [address], [facility] * Uric Acid (03/09/2024 11:59 AM BUSINESS SERVICES TECH) Uric Acid 4.7 2.6 - 6.0 mg/dL 03/09/2024 3:48 PM BUSINESS SERVICES TECH [facility] Blood Venipuncture / Unknown 03/09/2024 11:59 AM BUSINESS SERVICES TECH 03/09/2024 12:00 PM BUSINESS SERVICES TECH Kaelyn Mccallum APRN, CNP LAB_1 Final Re sult Performing Organization Address [facility] Co de Phone Number [facility] [address] * ALT (SGPT) (03/09/2024 11:59 AM BUSINESS SERVICES TECH) ALT (SGPT) <10 <=55 U/L 03/09/2024 3:48 PM BUSINESS SERVICES TECH [facility] Blood Venipuncture / Unknown 03/09/2024 11:59 AM BUSINESS SERVICES TECH 03/09/2024 12:00 PM BUSINESS SERVICES TECH Kaelyn Mccallum APRN, CNP LAB_1 Final Re sult Performing Organization Address [facility] de Phone Number [facility] [address] [place] [address] * AST (03/09/2024 11:59 AM BUSINESS SERVICES TECH) AST (SGOT) 14 10 - 40 U/L 03/09/2024 3:48 PM BUSINESS SERVICES TECH [facility] Blood Venipuncture / Unknown 03/09/2024 11:59 AM BUSINESS SERVICES TECH 03/09/2024 12:00 PM BUSINESS SERVICES TECH Kaelyn Mccallum APRN, CNP LAB_1 Final Re sult Performing Organization Address [facility] Co de Phone Number [facility] [address] * (ABNORMAL) Hemoglobin, Blood (02/28/2024 4:46 PM BUSINESS SERVICES TECH) Hemoglobin 10.9(L) 12.0 - 15.5 g/dL 02/28/2024 4:51 PM BUSINESS SERVICES TECH [place] [facility] Blood Venipuncture / Unknown 02/28/2024 4:46 PM BUSINESS SERVICES TECH 02/28/2024 4:46 PM BUSINESS SERVICES TECH Hernandez Banegas MD LAB_1 Final Result Performing Organization Address [facility] de Phone Number [facility] [address] [place] [address] * Membrane Rupture Detection (02/28/2024 4:40 PM BUSINESS SERVICES TECH) Ruptured Membrane Negative Negative 02/28/2024 4:41 PM BUSINESS SERVICES TECH [facility] Amniotic Fluid 02/28/2024 4: 40 PM BUSINESS SERVICES TECH 02/28/2024 4:40 PM BUSINESS SERVICES TECH Hernandez Banegas MD LAB_1 Final Result Performing Organization Address [facility] Number [facility] [address] [place] [address] * OBGYN Third Trimester Ultrasound (02/28/2024 3:05 PM BUSINESS SERVICES TECH) Anatomical Region Laterality Modality Pelvis Ultrasound Study GA Study Date Study IZZY Working IZZY (Source) 38w2d 02/28/2024 03/11/2024 03/22/2024 (Last Menstrua l Period) Fetus 1 Measurements Value GA (days) GA by US Calc 268 days 268 FHR 135 bpm BPD 9.34 cm 266 OFD HC 34.41 cm 278 AC 33.04 cm 258 FL 7.38 cm 264 HL CI FL/BPD .79 FL/AC .22 HC/AC 1.04 UAR - PSV UAR - S/D Ratio UAR - RI UAR - PI MCA - PSV MCA - S/D Ratio MCA - PI Gest Sac Yolk Sac CRL NT Lateral Ventricle CER Cisterna Magna XAVI 10.65 cm Foot EFW: Hadlock 1985 (BPD, HC, AC, FL) 3250 g Narrative 02/28/2024 3:55 PM BUSINESS SERVICES TECH Table formatting from the original result was not included. Images from the original result were not included. Laney Hammond Obstetrics Report Date: 02/28/2024 botany teacher Ultrasound At [address] [address] Dept Patient Information Name: Laney Hammond : 2000 (23 y.o.) (F) BMI: 25.86 kg/m Date: 02/28/2024 3:06 PM Performed By Bicycle Mechanic(s) initials: DP Attending: Samuel West MD Referred by: Hernandez Banegas MD Referring location: [facility] Procedure OBGYN THIRD TRIMESTER ULTRASOUND Indications Uterine size-date discrepancy in third trimester Gestational Age LMP: 06/16/2023 GA by Today's US: 38w2d Working GA: 36w5d Working IZZY: 03/22/2024, by Last Menstrual Period Maternal Evaluation Approach Transabdominal Right Adnexa Appears Normal Left Adnexa Appears Normal Ultrasound Findings Fetus 1 Evaluation Cardiac Activity Present Motion Normal Presentation Cephalic Amniotic Fluid Normal Placenta Location Anterior Gestation Type Kothari Biometry Heart Rate: 135 bpm BPD 9.34 cm 90% 38w0d HC 34.41 cm 89% 39w5d AC 33.04 cm 69% 36w6d FL 7.38 cm 74% 37w5d FL/BPD 0.79 FL/AC 0.22 HC/AC 1.04 XAVI 10.65 cm 5 - 50% Estimated FW: Hadlock 1985 (BPD, HC, AC, FL) : 3,250 g (7 lb 2.6 oz), 76% Projected EFW at 39w:3,763g (8 lb 4.7 oz) Estimated Weights Fetus 1: 3250g (76%) Heart Heart Rhythm regular 4 Chamber View visualized Abdomen Diaphragm visualized Stomach visualized Urinary Tract Right Kidney visualized Left Kidney visualized Bladder visualized Bicycle Mechanic Comments EFW is within normal limits, therefore no indication to do BPP on today's exam. Impression Normal weight, EFW: 3,250 g, 76%ile at 36w5d. Amniotic Fluid Index = 10.65 cm and is normal (>/= 5 and < 25 cm). Presentation: Cephalic Recommendations The patient is informed of the ultrasound findings by the jewel setter and will follow up with her obstetrical provider. Samuel West MD us Hernandez Banegas MD [facility] US Final Result * Chlamydia & GC (14 Years and Older): Vagina (08/05/2023 1:11 PM CDT) Pathologist [facility] Chlamydia Trachomatis STD Not Detected Not Detected 08/06/2023 1:20 AM CDT [facility] N. gonorrhoeae STD Not Detected Not Detected 08/06/2023 1:20 AM CDT [facility] Swab STD SPECIMEN FROM VAGINA / Unknown Non-blood Collection / Unknown 08/05/2023 1:11 PM CDT 08/05/2023 5:02 PM CDT Narrative [facility] - 08/06/2023 1:20 AM CDT Test performed by Associate Director Finance Mediated Amplification (TMA). us Sidra Baker MD LAB_1 Final Result [facility] [address] * Rapid Drug Panel, Urine (with Confirmation) without THC (08/05/2023 12:13 PM CDT) [facility] Amphetamines Screen Not Detected Not Detected 08/06/2023 7:38 AM [facility] Barbiturates Screen Not Detected Not Detected 08/06/2023 7:38 AM T [facility] Benzodiazepines Screen Not Detected Not Detected 08/06/2023 7:38 AM T [facility] Buprenorphine Screen Not Detected Not Detected 08/06/2023 7:38 AM T [facility] Cocaine Metabolite Screen Not Detected Not Detected 08/06/2023 7:38 AM [facility] Methadone Screen Not Detected Not Detected 08/06/2023 7:38 AM [facility] Opiates Screen Not Detected Not Detected 08/06/2023 7:38 AM [facility] Oxycodone Screen Not Detected Not Detected 08/06/2023 7:38 AM [facility] Phencyclidine (PCP) Screen Not Detected Not Detected 08/06/2023 7:38 AM [facility] Creatinine, Urine, Random 21 >20 mg/dL 08/06/2023 7:38 AM T [facility] Urine Non-blood Collection / Unknown 08/05/2023 12:13 PM CDT 08/05/2023 12:13 PM CDT [facility] - 08/06/2023 7:38 AM CDT The absence of expected drug(s) and/or drug metabolite(s) may indicate non-compliance, inappropriate timing of specimen collection relative to drug administration, poor drug absorption, diluted/adulterated urine or limitations of testing. The concentration must be greater than or equal to the cutoff concentration to be reported as positive. For medical purposes only: not valid for forensic, legal, or employment use. Sidra Baker MD LAB_1 Final Result Performing Organization Address [facility]/[place] [address], [facility] * HIV 1/2 Ag/Ab 4th Generation (08/05/2023 12:06 PM CDT) Pathologist [facility] HIV 1/2 Antigen/Anti body (4th generation) Negative (Non Reactive) Negative (Non Reactive) 08/05/2023 3:23 PM CDT [facility] Comment:HIV-1 p24 Antigen an d HIV-1/HIV-2 Antibody not detected Blood Venipuncture / Unknown 08/05/2023 12:06 PM CDT 08/05/2023 12:06 PM CDT us Sidra Baker MD LAB_1 Final Result [facility] [address] [place] [address], [facility] * Hepatitis C Antibody, with Reflex (08/05/2023 12:06 PM CDT) Hepatitis C Antibody Negative (Non Reactive) Negative (Non Reactive) 08/05/2023 3:28 PM CDT [facility] Comment:Antibodies to HCV no t detected. Does not exclude the possiblity of exposure to HCV. Blood Venipuncture / Unknown 08/05/2023 12:06 PM CDT 08/05/2023 12:06 PM CDT Sidra Baker MD LAB_1 Final Result [facility] [address] * PAP Test (12/14/2022 2:04 PM CDT) Case Report Pap Case: [id number] Authorizing Provider: Leigha Marx MD Collected: 12/14/2022 1404 Ordering Location: [facility] OB-LEATHER GRAINER Received: 12/14/2022 1408 [facility] Screen: Kamila Nielsen CT (ASCP) Specimen: Pap Test, Routine, Cervix/Endocervix 12/30/2022 9:02 AM [facility] Pap Specimen Adequacy Satisfactory for evaluation, endocervical/felix sformation zone component absent. 12/30/2022 9:02 AM [facility] Pap Interpretation (NILM) Negative for intraepithelial lesion or malignancy. 12/30/2022 9:02 AM [facility] at 0901 CDT Pap Disclaimer The Pap test is a screening test to aid in the detection of cervical and vaginal cancers and their precursor lesions. It is not a diagnostic procedure and should not be used as the sole means of detecting malignancy. Both false-positive and false-negative results may occur. 12/30/2022 9:02 AM [facility] Gross Description The specimen is received in SurePath fixative and properly labeled. 1 Pap-stained SurePath slide is prepared. 12/30/2022 9:02 AM [facility] Embedded Images 9:02 AM [facility] Other Specimen Type ENTIRE ENDOCERVIX / Unknown 12/14/2022 2:04 PM CDT 12/14/2022 2:08 PM CDT Comment:LMP: Patient's last menstrual period was 12/05/2022 (exact date). Leigha Marx MD LAB PATHOLOGY Final Result Performing Organization Address City/State/[facility] Co de Phone Number [address] [address], [facility] [phone] from Last 3 Months or Most Recently Relevant to Health Maintenance Insurance SELF MANAGED CARE SEL[employer] [facility] Care Teams News Camer[employer] Relationship Specialty [place] [address] [place] [address] PCP - General Family Practice 05/30/20
--- OUTSIDE RECORDS SUMMARY | 2024-05-22 20:08 | XMS_ITS | Encounter Summary ---
Author Organization Formerly [facility] Address [address], [place] [address] Care Team Providers Care Processing Engineer Name Role Phone Josefina Bolanos MD Primary Care Provider [phone] Reason for Visit * Reason Comments Medication Questions Entered automatical ly based on patient selection in [place]. Encounter Details Date Type Department Care Team ([facility] st Contact Info) Description 05/22/2024 4:20 PM CDT E-Visit Obstetrics & Gynecology at [address] [address] Hernandez Banegas MD [address] [place] [phone] Chief Comp: Medication Questions Social History Tobacco Use Types Packs/Day Years Used Date Smoking Tobacco: Never Passive Smoke Exposure: Never Smokeless Tobacco: Never Alcohol Use Standard Drinks/Week Comments Not Currently [...] file Not on file Not on file documented as of this encounter Nursing Notes * Irene Zelaya RN - 05/22/2024 4:35 PM CDT Routing to a covering provider to inquire if Adderall is safe to take while . Once we hear back we will let the patient know. Irene Zelaya RN [facility] documented in this encounter Plan of Treatment Not on file documented as of this encounter Visit Diagnoses Not on filedocumented in this encounter Care Teams Processing Engineer Relationship Specialty [place] [address] [place] [address] PCP - General Family Practice 05/30/20 documented as of this encounter
--- OUTSIDE RECORDS SUMMARY | 2024-05-22 20:08 | XMS_ITS | Encounter Summary ---
Author Organization [facility] Address [address], [place] [address] Care Team Providers Care Precinct Police Lieutenant Name Role Phone Josefina Bolanos MD Primary Care Provider [phone] Encounter Details Date Type Department Care Team ([facility] st Contact Info) Description 12/18/2015 Correspondence [facility] [address] [place], [place] [phone] [place] [address] [place], [place] [phone] SPORTS QUALIFYING PHYSICAL EXAM CLEARANCE FORM Social History Tobacco Use Types Packs/Day Years Used Date Smoking Tobacco: Never Smokeless Tobacco: Never Comments:no second hand smok e Alcohol Use Standard Drinks/Week Comments No 0 (1 standard drink = 0.6 oz pur e alcohol) Comments No Sex and Gender Information Value Date Recorded Sex Assigned at Not on file Legal Sex Female 5:19 AM CDT Gender Identity Not on file Sexual Orientation Not on file documented as of this encounter Plan of Treatment Not on file documented as of this encounter Visit Diagnoses Not on filedocumented in this encounter Additional Health Concerns Infection Onset Date Last Indicated Resolved Time R/O COVID19 09/18/2019 09/18/2019 09/25/2019 3:17 AM CDT R/O COVID19 11/10/2023 11/10/2023 11/11/2023 4:27 AM CDT documented as of this encounter Care Teams Precinct Police Lieutenant Relationship Specialty [place] [address] [place] [address] PCP - General Family Practice 05/30/20 documented as of this encounter
--- OUTSIDE RECORDS SUMMARY | 2024-05-22 20:08 | XMS_ITS | Encounter Summary ---
Author Organization [facility] Address [address] [place] [address] Care Team Providers Care Sheet Rock Nailer Name Role Phone Josefina Bolanos MD Primary Care Provider [phone] Encounter Details Date Type Department Care Team (Late st Contact Info) Description 2001 Office Visit [facility] [address] [place] [address] Robles Jo MD [address] [place], [place] [address] Social History Tobacco Use Types Packs/Day Years Used Date Smoking Tobacco: Never Assessed Comments Unknown Sex and Gender Information Value Date Recorded Sex Assigned at Not on file Legal Sex Female 5:19 AM CDT Gender Identity Not on file Sexual Orientation Not on file documented as of this encounter Progress Notes * Robles Jo - 2000 12:00 AM CDTS: 9-day-old was born at [facility]. Labor was induced at 38 1/2 weeks. Infant has mild jaundice. Mother's blood type is B+. Infant is well. weight was 9 lbs 6 oz. O: Healthy appearing 9-day-old female with mild to moderate jaundice. Entire exam otherwise unremarkable. A: jaundice. P: Bilirubin is 13.7. Continue symptomatic treatment. Observation. Reassured. Routine health maintenance at 2 weeks. IN SUMMARY: JAUNDICE cc: documented in this encounter Plan of Treatment Not on file documented as of this encounter Visit Diagnoses Not on filedocumented in this encounter Additional Health Concerns Infection Onset Date Last Indicated Resolved Time R/O COVID19 09/18/2019 09/18/2019 09/25/2019 3:17 AM CDT R/O COVID19 11/10/2023 11/10/2023 11/11/2023 4:27 AM CDT documented as of this encounter Care Teams Sheet Rock Nailer Relationship Specialty [place] [address] [place] [address] PCP - General Family Practice 05/30/20 documented as of this encounter
--- OUTSIDE RECORDS SUMMARY | 2024-05-22 20:08 | XMS_ITS | Encounter Summary ---
Author Organization [facility] Address [address], [place] [address] Care Team Providers Care Nut Sheller Machine Operator Name Role Phone Josefina Bolanos MD Primary Care Provider [phone] Reason for Referral * Procedure/Equipment (Routine) - Incomplete Specialty Diagnoses / Procedures Referred By Mckenzie kent Referred To Contact Diagnoses Unsuccessful IUD insertion Procedures OBGYN Pelvic/Manager Sound Ultrasound Shagufta Galvez, CINTHYA, FOUNTAIN OPERATOR [address] [place] [address] Phone: tel: fax: Referral ID Status Reason Start Date Expiration Date V isits Requested Visits Authorized [id number] Incomplete 05/15/2024 08/14/2025 1 1 Reason for Visit * Reason Comments POST- Encounter Details Date Type Department Care Team ([facility] st Contact Info) Description 05/15/2024 1:40 PM CDT Visit Obstetrics & Gynecology at [address] [phone] Shagufta Galvez, HEALTH INSURANCE SPECIALIST, FOUNTAIN OPERATOR [address] [place] [address] POST- Social History Tobacco Use Types Packs/Day Years [...] on file documented as of this encounter Last Filed Vital Signs Vital Sign Reading Time Taken Comments Blood Pressure 113/78 05/15/2024 1:32 PM CDT Pulse 62 05/15/2024 1:32 PM CDT Temperature - - Respiratory Rate - - Oxygen Saturation - - Inhaled Oxygen Concentration - - Weight 61.1 kg (134 lb 12.8 oz) 05/15/2024 1:32 PM CDT Height - - Body Mass Index 21.41 08/05/2023 1:14 PM CDT documented in this encounter Patient Instructions * Patient Instructions* Shagufta Galvez APRN, CNP - 05/15/2024 1:40 PM CDT Please schedule US to evaluate for enlarged uterus. If US is normal, we can proceed with US-guided IUD insertion at that time. Please use condoms if active 100% until insertion Go to lab today. We will call with abnormal results. documented in this encounter Progress Notes * Shagufta Galvez APRN, CNP - 05/15/2024 1:40 PM CDT Laney is a 23 y.o. who presents today for a 7 week exam. Patient s/p 03/26/2024. Delivery c/b right vaginal laceration (repaired) and small bilateral labial lacerations (not repaired). c/b varicella NI, ADHD, anemia and MR BP x 1. Deep Gap Depression Screening Score: The thought of harming myself has occurred to me.: Never Deep Gap Depression Scale Total: 8 Last Hgb: 11.8 Last pap: 12/2022 NILM HPV negative, pap due 12/2025. Patient reports adjusting well since delivery. Baby is doing well. Partner is supportive. Mood is stable. Patient is breast-feeding, pumping and supplementing formula. Denies breast concerns. Patientdenies concerns with bowel/bladder. Lochia ceased last week. Patient has not yet resumed intercourse. Initially desired to have Mirena IUD inserted, but after unsuccessful IUD insertion, she opted toinitiate pills. PE BP 113/78 (BP Location: Left Arm, BP Cuff Size: Regular) Pulse 62 Wt 134 lb 12.8 oz (61.1 kg) LMP 06/16/2023 (Exact Date) Yes BMI 21.41 kg/m?? General Appearance: alert, healthy, smiling, cooperative Abdomen: soft, non-tender, no masses and 1 diastasis Pelvic: External genitalia and vagina normal. Bimanual normal. Perineum well approximated, well healed, non-tender. IUD INSERTION Patient counseled and desires to have Mirena IUD inserted today. Mid-position uterus on bimanual. Speculum inserted and cervix cleansed with Betadine x 3. Tenaculum placed on anterior lip of cervix. Attempted to pass flexisound and this was unsuccessful. Dilated with os finder. Uterus sounded to 7 cm. Attempted to insert Mirena, but unable to pass insertion tool. Repeat attempt at sound and soundnow passed to 10 cm. Skipwith decision was made to abandon procedure given difficulty in passing sound/insertion tool and various sound measurement. Offered US to evaluate for enlarged uterus and have Mirena IUD inserted with US guidance, but she declines and wishes to proceed with pills. ASSESSMENT Normal exam without signs and symptoms of depression. PLAN Laney was seen today for post-. Diagnoses and all orders for this visit: follow-up - Hemoglobin; Future Encounter for screening for other disorder Encounter for IUD insertion - Insertion Of Intrauterine Device Unsuccessful IUD insertion - OBGYN Pelvic/Manager Sound Ultrasound; Future Encounter for BCP ( control pills) initial prescription - norethindrone, contraceptive, (MICRONOR) 0.35 MG tablet; Take 1 Tablet (0.35 mg) by mouth daily. : reviewed healthy diet/nutrition, lifestyle and exercise . To lab for repeat Hgb. Mood: mood stable, denies SI/HI. EPDS today was 8, question 10 was 0. Contraception: initially desired Mirena IUD insertion, but unsuccessful insertion in clinic today (see above note for details). She declined US-guided insertion and wishes to initiate pills. Rx Micronor 1 tab PO daily, dispense 84 tabs with 3 refills. May quick start, use condoms as a backup methodx 2 weeks. RTC annually for WATCH CRYSTAL CUTTER RHM; sooner with WATCH CRYSTAL CUTTER concerns. Shagufta Galvez APRN, CNP 05/15/2024, 2:03 PM documented in this encounter Nursing Notes * Erna Lemus MA - 05/15/2024 1:40 PM CDT Examination chaperoned by Erna Lemus MA. documented in this encounter Plan of Treatment Scheduled Orders Name Type Priority Associated Diagnoses Orde r Schedule Hemoglobin Lab Routine follow-up Expected: 05/15/2024 (Approximate), Expires: 08/13/2024 OBGYN Pelvic/Manager Sound Ultrasound Imaging New Routine Unsuccessful IUD insertion Expected: 05/15/2024 (Approximate), Expires: 05/15/2025 documented as of this encounter Visit Diagnoses Diagnosis follow-up- Primary Routine follow-up Encounter for screening for other disorder Encounter for IUD insertion Encounter for insertion of intrauterine contraceptive device Unsuccessful IUD insertion Encounter for BCP ( control pills) initial prescription General counseling for prescription of oral contraceptives documented in this encounter Care Teams Nut Sheller Machine Operator Relationship Specialty [place] [address] [place] [address] PCP - General Family Practice 05/30/20 documented as of this encounter
--- OUTSIDE RECORDS SUMMARY | 2024-05-22 20:08 | XMS_ITS | Encounter Summary ---
Author Organization [facility] Address [address], [place] [address] Care Team Providers Care E Commerce Marketing Analyst Name Role Phone Josefina Bolanos MD Primary Care Provider [phone] Encounter Details Date Type Department Care Team (Late st Contact Info) Description 11/05/2017 Correspondence [facility] [address] [place] [address] Oscar Ramirez PA-C [address] [place] [address] SPORTS PE CLEARANCE FORM Social History Tobacco Use Types [...] documented as of this encounter Care Teams E Commerce Marketing Analyst Relationship Specialty [place] [address] [place] [address] PCP - General Family Practice 05/30/20 documented as of this encounter
[2024-05-22 20:25] VITALS: BP 149/83; PULSE 74; RESP 16; TEMP 36.7; O2SAT 98; BMI 21.6
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
--- OUTSIDE RECORDS SUMMARY | 2024-05-22 21:05 | XMS_ITS | Encounter Summary ---
Author Organization [facility] Address [address], [place] [address] Care Team Providers Care Washer Hand Name Role Phone Josefina Bolanos MD Primary Care Provider [phone] Reason for Visit * Reason Comments Medication Questions Entered automatical ly based on patient selection in [place]. Encounter Details Date Type Department Care Team ([facility] st Contact Info) Description 05/22/2024 4:20 PM CDT E-Visit Obstetrics & Gynecology at [address] [address] Hernandez Banegas MD [address] [place] [phone] Chief Comp: Medication Questions Social History [...] let the patient know. Irene Zelaya RN [facility] documented in this encounter Plan of Treatment Not on file documented as of this encounter Visit Diagnoses Not on filedocumented in this encounter Care Teams Washer Hand Relationship Specialty Start [place] [address] [place] [address] PCP - General Family Practice 05/30/20 documented as of this encounter
--- OUTSIDE RECORDS SUMMARY | 2024-05-22 21:05 | XMS_ITS | Clinical Summary ---
Author Organization [facility] Address [address], [place] [address] Care Team Providers Care Knapsack Sprayer Name Role Phone Josefina Bolanos MD Primary Care Provider [phone] Source Comments You are receiving this document [...] for each transition of care or referral. [facility] Allergies Active Allergy Reactions Criticality Noted Date [...] Patient not taking.Reported on 03/20/2024 Prenat MV-Min w/Wi-Vfetus-DIY ( COMPLETE OR) Active Misc. Devices (BREAST [...] PM CDT E-Visit Obstetrics & Gynecology at [address] [address] Hernandez Banegas MD Chief Comp: Medication Questions 05/15/2024 1:40 PM CDT Visit Obstetrics & Gynecology at [address] [address] Shagufta Galvez, DISASTER RECOVERY COORDINATOR, WASHCLOTH FOLDER POST- 03/20/2024 9:00 AM GLASS SELECTOR Routine Obstetrics & Gynecology at [address] [address] Hernandez Banegas MD SUBSEQUENT VISIT 03/15/2024 4:20 PM GLASS SELECTOR Routine Obstetrics & Gynecology at [address] [address] Hernandez Banegas MD Ob Exam Subsequent (Pn care.[id number]/Discuss Lab results) 03/09/2024 4:00 PM GLASS SELECTOR E-Visit Obstetrics & Gynecology at [address] [address] Kaelyn Mccallum APRN, CNP Chief Comp: RESULTS, TEST 03/09/2024 11:50 AM GLASS SELECTOR Lab Visit Laboratory at [address] [address] Elevated blood pressure affecting in third trimester, antepartum 03/09/2024 11:40 AM GLASS SELECTOR Routine Obstetrics & Gynecology at [address] [address] Kaelyn Mccallum APRN, CNP 03/09/2024 Telephone Obstetrics & Gynecology at [address] [phone] Kaelyn Mccallum APRN, CNP Pre-visit Planning 02/28/2024 4:40 PM GLASS SELECTOR Lab Visit Laboratory at [address] [address] Anemia, unspecified type 02/28/2024 4:20 PM GLASS SELECTOR Routine Obstetrics & Gynecology at [address] [address] Hernandez Banegas MD SUBSEQUENT VISIT 02/28/2024 2:40 PM GLASS SELECTOR Ancillary Procedure print developer automatic Ultrasound at [address] [address] Hernandez Banegas MD Encounter for supervision of normal first in third trimester; Uterine size-date discrepancy in third trimester 02/23/2024 1:00 PM GLASS SELECTOR E-Visit Obstetrics & Gynecology at [address] [address] Hernandez Banegas MD Dx: Anemia, unspecified type (Primary Dx) from Last 3 Months Immunizations Immunization Administration Dates Next Due 9vHPV (Gardasil 9) 11/05/2017,12/18/2015 Adult RSV Abrysvo 02/21/2024 DTaP 06/16/2006, 4,2001,2001,2001 Flu Vac (3+ yrs) 02/22/2012, 7,04/27/2006,2004 Flu Vac Preserv Free (6-35 mo) 03/06/2003,2002 Fluzone Qiv Multidose Vial 0 .25 (6-35 Mos) 01/15/2022 H1N1 MIV CSL 3+ Yr Presev-fr ee (Inj)([facility]) 02/22/2009 Hib/HBV 06/13/2002,2001,2001 IPV (Polio) 06/16/2006, 2,2001,2001 Influenza (Flucelvax) 12/03/2022 Influenza (Flucelvax), Prese rv Free QIV 12/03/2022 Influenza IIV4 (Quadrivalent ) 0.5mL (89183) 12/18/2015,01/11/2015 Influenza Vaccine, Nasal ([facility]) 02/22/2009 Influenza ccIIV3 6 months+ (Flucelvax) [...] RATIO, URINE Same Day 03/09/2024 12:04 PM GLASS SELECTOR Elevated blood pressure affecting in third trimester, antepartum PLATELETS Same Day 03/09/2024 11:59 AM GLASS SELECTOR Elevated blood pressure affecting in third trimester, antepartum URIC ACID Same Day 03/09/2024 11:59 AM GLASS SELECTOR Elevated blood pressure affecting in third trimester, antepartum CREATININE / GFR Same Day 03/09/2024 11:5 9 AM GLASS SELECTOR Elevated blood pressure affecting in third trimester, antepartum ALT (SGPT) Same Day 03/09/2024 11:59 AM GLASS SELECTOR Elevated blood pressure affecting in third trimester, antepartum AST Same Day 03/09/2024 11:59 AM GLASS SELECTOR Elevated blood pressure affecting in third trimester, antepartum HEMOGLOBIN, BLOOD Routine 02/28/2024 4:4 6 PM GLASS SELECTOR Anemia, unspecified type MEMBRANE RUPTURE DETECTION Waiting 02/28/2024 4:40 PM GLASS SELECTOR Amniotic fluid leaking OBGYN THIRD TRIMESTER ULTRASOUND Routine 02/28/2024 3:05 PM GLASS SELECTOR Uterine size-date discrepancy in third trimester CHLAMYDIA [...] (ABNORMAL) TP/Crea Ratio, Urine (03/09/2024 12:04 PM GLASS SELECTOR) TP/Creat Ratio, Urine Random 0.34(H) 0.00 - 0.20 03/09/2024 4:00 PM [facility] Total Protein, Urine, Random 12 0 - 14 mg/dL 03/09/2024 4:00 PM [facility] Creatinine, Urine, Random 35 >20 mg/dL mg/dL 03/09/2024 4:00 PM [facility] Urine Non-blood Collection / Unknown 03/09/2024 12:04 PM GLASS SELECTOR 03/09/2024 12:04 PM GLASS SELECTOR Narrative [facility] - 03/09/2024 4:00 PM GLASS SELECTOR Low urine creatinine values coupled with low urine protein values can artifactually increase the urine protein/creatinine results. Correlate results of ratio with creatinine results. Kaelyn Mccallum APRN, CNP LAB_1 Final Re sult Performing Organization Address [facility] Co de Phone Number [facility] [address] * Creatinine / GFR (03/09/2024 11:59 AM GLASS SELECTOR) Creatinine 0.61 0.55 - 1.02 mg/dL 03/09/2024 3:48 PM GLASS SELECTOR [facility] GFR, Estimated >60 >60 mL/min/1. 73m2 03/09/2024 3:48 PM [facility] Blood Venipuncture / Unknown 03/09/2024 11:59 AM GLASS SELECTOR 03/09/2024 12:00 PM GLASS SELECTOR Kaelyn Mccallum APRN, CNP LAB_1 Final Re sult Performing Organization Address [facility] Co de Phone Number [facility] [address] [place] [address] * Platelets (03/09/2024 11:59 AM GLASS SELECTOR) Platelets 177 150 - 450 x10(9)/L 03/09/2024 12:03 PM [facility] SELECTOR [place] [facility] Blood Venipuncture / Unknown 03/09/2024 11:59 AM GLASS SELECTOR 03/09/2024 12:00 PM GLASS SELECTOR Kaelyn Mccallum APRN, CNP LAB_1 Final Re sult Performing Organization Address [facility]/ZIP Co de Phone Number [place] [facility] [address] [place] [address], [facility] * Uric Acid (03/09/2024 11:59 AM GLASS SELECTOR) Uric Acid 4.7 2.6 - 6.0 mg/dL 03/09/2024 3:48 PM GLASS SELECTOR [facility] Blood Venipuncture / Unknown 03/09/2024 11:59 AM GLASS SELECTOR 03/09/2024 12:00 PM GLASS SELECTOR Kaelyn Mccallum APRN, CNP LAB_1 Final Re sult Performing Organization Address [facility] Co de Phone Number [facility] [address] * ALT (SGPT) (03/09/2024 11:59 AM GLASS SELECTOR) ALT (SGPT) <10 <=55 U/L 03/09/2024 3:48 PM GLASS SELECTOR [facility] Blood Venipuncture / Unknown 03/09/2024 11:59 AM GLASS SELECTOR 03/09/2024 12:00 PM GLASS SELECTOR Kaelyn Mccallum APRN, CNP LAB_1 Final Re sult Performing Organization Address [facility] de Phone Number [facility] [address] [place] [address] * AST (03/09/2024 11:59 AM GLASS SELECTOR) AST (SGOT) 14 10 - 40 U/L 03/09/2024 3:48 PM GLASS SELECTOR [facility] Blood Venipuncture / Unknown 03/09/2024 11:59 AM GLASS SELECTOR 03/09/2024 12:00 PM GLASS SELECTOR Kaelyn Mccallum APRN, CNP LAB_1 Final Re sult Performing Organization Address [facility] Co de Phone Number [facility] [address] * (ABNORMAL) Hemoglobin, Blood (02/28/2024 4:46 PM GLASS SELECTOR) Hemoglobin 10.9(L) 12.0 - 15.5 g/dL 02/28/2024 4:51 PM GLASS SELECTOR [facility] Blood Venipuncture / Unknown 02/28/2024 4:46 PM GLASS SELECTOR 02/28/2024 4:46 PM GLASS SELECTOR Hernandez Banegas MD LAB_1 Final Result Performing Organization Address [facility] de Phone Number [facility] [address] [place] [address] * Membrane Rupture Detection (02/28/2024 4:40 PM GLASS SELECTOR) Ruptured Membrane Negative Negative 02/28/2024 4:41 PM GLASS SELECTOR [facility] Amniotic Fluid 02/28/2024 4: 40 PM GLASS SELECTOR 02/28/2024 4:40 PM GLASS SELECTOR Hernandez Banegas MD LAB_1 Final Result Performing Organization Address [facility] Number [facility] [address] [place] [address] * OBGYN Third Trimester Ultrasound (02/28/2024 3:05 PM GLASS SELECTOR) Anatomical Region Laterality Modality Pelvis Ultrasound Study [...] FL) 3250 g Narrative 02/28/2024 3:55 PM GLASS SELECTOR Table formatting from the original result was not included. Images from the original result were not included. Laney Hammond Obstetrics Report Date: 02/28/2024 hide inspector Ultrasound At [address] [address] Dept Patient Information Name: Laney Hammond : 2000 (23 y.o.) (F) BMI: 25.86 kg/m Date: 02/28/2024 3:06 PM Performed By Foreclosure Clerk(s) initials: DP Attending: Samuel West MD Referred by: Hernandez Banegas MD Referring location: [facility] Procedure OBGYN THIRD TRIMESTER ULTRASOUND Indications Uterine [...] Kidney visualized Left Kidney visualized Bladder visualized Foreclosure Clerk Comments EFW is within normal limits, therefore no indication to do BPP on today's exam. Impression Normal weight, EFW: 3,250 g, 76%ile at 36w5d. Amniotic Fluid Index = 10.65 cm and is normal (>/= 5 and < 25 cm). Presentation: Cephalic Recommendations The patient is informed of the ultrasound findings by the waste picker and will follow up with her obstetrical provider. Samuel West MD us Hernandez Banegas MD [facility] US Final Result * Chlamydia & GC (14 Years and Older): Vagina (08/05/2023 1:11 PM CDT) Pathologist [facility] Chlamydia Trachomatis STD Not Detected Not Detected 08/06/2023 1:20 AM CDT [facility] N. gonorrhoeae STD Not Detected Not Detected 08/06/2023 1:20 AM CDT [facility] Swab STD SPECIMEN FROM VAGINA / Unknown Non-blood Collection / Unknown 08/05/2023 1:11 PM CDT 08/05/2023 5:02 PM CDT Narrative [facility] - 08/06/2023 1:20 AM CDT Test performed by Wildlife Refuge Manager Mediated Amplification (TMA). us Sidra Baker MD LAB_1 Final Result [facility] [address] * Rapid Drug Panel, Urine (with Confirmation) without THC (08/05/2023 12:13 PM CDT) [facility] Amphetamines Screen Not Detected Not Detected 08/06/2023 7:38 AM [facility] Barbiturates Screen Not Detected Not Detected 08/06/2023 7:38 AM [facility] Benzodiazepines Screen Not Detected Not Detected 08/06/2023 7:38 AM [facility] Buprenorphine Screen Not Detected Not Detected 08/06/2023 7:38 AM [facility] Cocaine Metabolite Screen Not Detected Not Detected 08/06/2023 7:38 AM [facility] Methadone Screen Not Detected Not Detected 08/06/2023 7:38 AM [facility] Opiates Screen Not Detected Not Detected 08/06/2023 7:38 AM [facility] Oxycodone Screen Not Detected Not Detected 08/06/2023 7:38 AM [facility] Phencyclidine (PCP) Screen Not Detected Not Detected 08/06/2023 7:38 AM [facility] Creatinine, Urine, Random 21 >20 mg/dL 08/06/2023 7:38 AM [facility] Urine Non-blood Collection / Unknown 08/05/2023 12:13 PM CDT 08/05/2023 12:13 PM CDT [facility] - 08/06/2023 7:38 AM CDT The absence [...] MD LAB_1 Final Result Performing Organization Address [facility]/[place] [address], [facility] * HIV 1/2 Ag/Ab 4th Generation (08/05/2023 12:06 PM CDT) Pathologist [facility] HIV 1/2 Antigen/Anti body (4th generation) Negative (Non Reactive) Negative (Non Reactive) 08/05/2023 3:23 PM CDT [facility] Comment:HIV-1 p24 Antigen an d HIV-1/HIV-2 Antibody not detected Blood Venipuncture / Unknown 08/05/2023 12:06 PM CDT 08/05/2023 12:06 PM CDT us Sidra Baker MD LAB_1 Final Result [facility] [address] [place] [address], [facility] * Hepatitis C Antibody, with Reflex (08/05/2023 12:06 PM CDT) Hepatitis C Antibody Negative (Non Reactive) Negative (Non Reactive) 08/05/2023 3:28 PM CDT [facility] Comment:Antibodies to HCV no t detected. Does not exclude the possiblity of exposure to HCV. Blood Venipuncture / Unknown 08/05/2023 12:06 PM CDT 08/05/2023 12:06 PM CDT Sidra Baker MD LAB_1 Final Result [facility] [address] * PAP Test (12/14/2022 2:04 PM CDT) Case Report Pap Case: [id number] Authorizing Provider: Leigha Marx MD Collected: 12/14/2022 1404 Ordering Location: [facility] OB-PHYSICAL AERODYNAMICIST Received: 12/14/[address] [facility] Screen: Kamila Nielsen CT (ASCP) Specimen: Pap Test, Routine, Cervix/Endocervix 12/30/2022 9:02 AM [facility] Pap Specimen Adequacy Satisfactory for evaluation, endocervical/felix sformation zone component absent. 12/30/2022 9:02 AM [facility] Pap Interpretation (NILM) Negative for intraepithelial lesion or malignancy. 12/30/2022 9:02 AM [facility] at 0901 CDT Pap Disclaimer The Pap test is a screening test to aid in the detection of cervical and vaginal cancers and their precursor lesions. It is not a diagnostic procedure and should not be used as the sole means of detecting malignancy. Both false-positive and false-negative results may occur. 12/30/2022 9:02 AM [facility] Gross Description The specimen is received in SurePath fixative and properly labeled. 1 Pap-stained SurePath slide is prepared. 12/30/2022 9:02 AM [facility] Embedded Images 9:02 AM [facility] Other Specimen Type ENTIRE ENDOCERVIX / Unknown 12/14/2022 2:04 PM CDT 12/14/2022 2:08 PM CDT Comment:LMP: Patient's last menstrual period was 12/05/2022 (exact date). Leigha Marx MD LAB PATHOLOGY Final Result Performing Organization Address City/State/[facility] Co de Phone Number [address] [address], [facility] [phone] from Last 3 Months or Most Recently Relevant to Health Maintenance Insurance S[employer] S[employer] [facility] Care Teams Knapsack Sprayer Relationship Specialty [place] [address] [place] [address] PCP - General Family Practice 05/30/20
--- OUTSIDE RECORDS SUMMARY | 2024-05-22 21:05 | XMS_ITS | Encounter Summary ---
Author Organization [facility] Address [address], [place] [address] Care Team Providers Care Drop Wire Builder Name Role Phone Josefina Bolanos MD Primary Care Provider [phone] Reason for Referral * Procedure/Equipment (Routine) - Incomplete Specialty Diagnoses / Procedures Referred By Mckenzie kent Referred To Contact Diagnoses Unsuccessful IUD insertion Procedures OBGYN Pelvic/Short Order [facility] Ul[facility]ound Shagufta Galvez, CINTHYA, RN COMPLIANCE [address] [place] [address] Phone: tel: fax: Referral ID Status Reason Start Date Expiration Date V isits Requested Visits Authorized [id number] Incomplete 05/15/2024 08/14/2025 1 1 Reason for Visit * Reason Comments POST- Encounter Details Date Type Department Care Team ([facility] st Contact Info) Description 05/15/2024 1:40 PM CDT Visit Obstetrics & Gynecology at [address] [phone] Shagufta Galvez, PROPERTY UTILIZATION OFFICER, RN COMPLIANCE [address] [place] [address] POST- Social History Tobacco Use Types Packs/Day [...] encounter Patient Instructions * Patient Instructions* Shagufta Glavez APRN, CNP - 05/15/2024 1:40 PM CDT [...] ADHD, anemia and MR BP x 1. [place] Depression Screening Score: The thought of harming myself has occurred to me.: Never [place] Depression Scale Total: 8 Last Hgb: 11.8 [...] sound and soundnow passed to 10 cm. [place] decision was made to abandon procedure given [...] Intrauterine Device Unsuccessful IUD insertion - OBGYN Pelvic/Short Order [facility] Ultrasound; Future Encounter for BCP ( control [...] backup methodx 2 weeks. RTC annually for TOBACCO ROLLER RHM; sooner with TOBACCO ROLLER concerns. Shagufta Galvez APRN, CNP 05/15/2024, 2:03 PM documented in this encounter Nursing Notes * Erna Lemus MA - 05/15/2024 1:40 PM CDT Examination chaperoned by Erna Lemus MA. documented in this encounter Plan of Treatment Scheduled Orders Name Type Priority Associated Diagnoses Orde r Schedule Hemoglobin Lab Routine follow-up Expected: 05/15/2024 (Approximate), Expires: 08/13/2024 OBGYN Pelvic/Short Order [facility] Ultrasound Imaging New Routine Unsuccessful IUD insertion [...] contraceptives documented in this encounter Care Teams Drop Wire Builder Relationship Specialty [place] [address] [place] [address] PCP - General Family Practice 05/30/20 documented as of this encounter
--- OUTSIDE RECORDS SUMMARY | 2024-05-22 21:06 | XMS_ITS | Encounter Summary ---
Author Organization [facility] Address [address], [place] [address] Care Team Providers Care Air Conditioning Equipment Mechanic Name Role Phone Josefina Bolanos MD Primary Care Provider [phone] Encounter Details Date Type Department Care Team (Late st Contact Info) Description 11/05/2017 Correspondence [facility] [address] [place] [address] Oscar Ramirez PA-C [address] [place] [address] SPORTS PE CLEARANCE FORM Social History Tobacco [...] documented as of this encounter Care Teams Air Conditioning Equipment Mechanic Relationship Specialty [place] [address] [place] [address] PCP - General Family Practice 05/30/20 documented as of this encounter
--- OUTSIDE RECORDS SUMMARY | 2024-05-22 21:06 | XMS_ITS | Clinical Summary ---
Author Organization [employer] Address [address] [place] [address] Care Team Providers Care Jewel Bearing Polisher Name Role Phone Pcp, No Primary Care [...] 24 hrs. 100 Tablet 03/27/2024 7:53 AM DOCTOR'S ASSISTANT 5 Active ibuprofen (ADVIL; MOTRIN) 600 mg tabletIndicati ons: (spontaneous vaginal delivery) Take 1 Tablet (600 mg) by mouth every 6 hours. Maximum of 3200 mg in 24 hours. 100 Tablet 03/27/2024 7:53 AM DOCTOR'S ASSISTANT 5 Active sennosides (SENNA) 8.6 mg tabletIndicati ons: (spontaneous vaginal delivery) Take 1-2 Tablets (8.6-17.2 mg) by mouth 2 times daily if needed for Constipation. 60 Tablet 03/27/2024 7:53 AM DOCTOR'S ASSISTANT 5 Active Active Problems Problem Noted Date Diagnosed Date (spontaneous vaginal delivery) 03/26/2024 Encounter for elective induction of labor 2024 Anemia 12/22/2023 Susceptible to varicella (non-immune), currently 11/17/2023 Encounter for supervision of normal first in third trimester 08/05/2023 Attention deficit hyperactivity disorder, combin ed type 05/02/2019 Keratosis pilaris 12/28/2015 Encounters Date Type Department Care Team Description 03/28/2024 Telephone [facility] [place] [address] [facility] [address] [place] [address] [facility] 03/26/2024 9:00 AM DOCTOR'S ASSISTANT Anesthesia Event [facility] [address] [place] [address] Madison Fish MD 03/25/2024 7:33 PM DOCTOR'S ASSISTANT - 03/27/2024 5:45 PM DOCTOR'S ASSISTANT Hospital Encounter [facility] [address] [place] [address] Krista Silva MD Abdi, Mayra [...] on file Legal Sex Female 5:32 PM DOCTOR'S ASSISTANT Gender Identity Not on file Sexual Orientation [...] Mayra castro MD Complications:None Delivery Location:Hospital ( [address]) Comments: Summary Episode Dates Number of [...] patient. Response: Discharged at 1745 via Ambulatory OR'S ASSISTANT 03/27/2024 - 40w4d - Yovani Anthony MD [...] MD .................... 03/27/2024 7:28 AM DOS 03/27/2024 OR'S ASSISTANT 03/27/2024 - 40w4d - Hayley Pedro RN Student charting has been reviewed and approved for this patient s record. OR'S ASSISTANT 03/26/2024 - 40w4d - Danita Kwok RN Laney Hammond transferred to [facility] at 1640 in stable condition. [...] Danita Kwok RN .................... 03/26/2024 5:14 PM OR'S ASSISTANT 03/26/2024 - 40w4d - Alesha Mckeon RN [...] Nieves Dr. Abdi, Betsy RN, Leana RODRIGUEZ. OR'S ASSISTANT 03/26/2024 - 40w4d - Yovani Anthony MD [...] RN /-1 @ [phone]) FHT: cat 1 [place]: q 3-4.5 min Labs: Rh pos, GBS [...] Mayra Anthony MD .................... 03/26/2024 1:01 PM OR'S ASSISTANT OR'S ASSISTANT OR'S ASSISTANT 03/26/2024 - 40w4d - Rafia Conner RN [...] Rafia Conner RN .................... 03/25/2024 10:42 PM OR'S ASSISTANT Last Filed Vital Signs Vital Sign Reading Time Taken Comments Blood Pressure 112/55 03/27/2024 1:47 PM DOCTOR'S ASSISTANT Pulse 68 03/27/2024 1:47 PM DOCTOR'S ASSISTANT Temperature 36.7 C (98 F) 03/27/2024 1:47 PM DOCTOR'S ASSISTANT Respiratory Rate 18 03/27/2024 1:47 PM DOCTOR'S ASSISTANT Oxygen Saturation 98% 03/27/2024 1:47 PM DOCTOR'S ASSISTANT Inhaled Oxygen Concentration - - Weight 75.6 kg (166 lb 11.2 oz) 03/25/2024 7:42 PM DOCTOR'S ASSISTANT Height 167.6 cm (5' 6) 03/25/2024 7:42 PM DOCTOR'S ASSISTANT Body Mass Index 26.91 03/25/2024 7:42 PM DOCTOR'S ASSISTANT Plan of Treatment Health Maintenance Due Date [...] HCHG TUBING PR5 Routine 03/26/2024 9:00 AM DOCTOR'S ASSISTANT HCHG LABOR EPIDURAL INITIAL Routine 03/26/2024 9:00 AM DOCTOR'S ASSISTANT EPIDURAL BLOCK Routine 03/26/2024 9:00 AM DOCTOR'S ASSISTANT HCHG DRSG PR1 Routine 03/26/2024 9:00 AM DOCTOR'S ASSISTANT HCHG KIT EPIDURAL PR10 Routine 03/26/2024 9:00 AM DOCTOR'S ASSISTANT TREPONEMA PALLIDUM Today 03/25/2024 9: 46 PM DOCTOR'S ASSISTANT TYPE & SCREEN Today 03/25/2024 9:45 PM DOCTOR'S ASSISTANT PLATELET COUNT Today 03/25/2024 9:45 PM DOCTOR'S ASSISTANT HEMOGLOBIN Today 03/25/2024 9:45 PM DOCTOR'S ASSISTANT HEMOGLOBIN EXTERNAL Routine 02/28/2024 4 :46 PM DOCTOR'S ASSISTANT HIV EXTERNAL Routine 08/05/2023 12:06 PM CDT from Last 3 Months or Most Recently Relevant to Health Maintenance Results * HCHG KIT EPIDURAL PR10, HCHG DRSG PR1, EPIDURAL BLOCK, HCHG LABOR EPIDURAL INITIAL, HCHG TUBING PR5(03/26/2024 9:00 AM DOCTOR'S ASSISTANT) Narrative Madison Fish MD - 03/26/2024 9:00 AM DOCTOR'S ASSISTANT Madison Fish MD 03/26/2024 9:14 AM Labor [...] Result * Treponema Pallidum (03/25/2024 9:46 PM DOCTOR'S ASSISTANT) TREPONEMA PALLIDUM Non-Reacti ve Non-Reacti ve 03/25/2024 10:45 PM DOCTOR'S ASSISTANT [facility] [employer] [facility] Blood BLOOD SPECIMEN / Unknown Butterfly / Unknown 03/25/2024 9:46 PM DOCTOR'S ASSISTANT 03/25/2024 10:12 PM DOCTOR'S ASSISTANT Krista Silva MD SEND OUTS Final Resul t Performing Organization Address City/[facility]/ZIP Co de Phone Number [facility] [address] [place] [address], * TYPE & SCREEN (03/25/2024 9:45 PM DOCTOR'S ASSISTANT) ABORH O Rh Positive 03/25/2024 10:56 PM DOCTOR'S ASSISTANT [facility] BLOOD BANK ANTIBODY SCREEN Negative Negative 03/25/2024 10:56 PM DOCTOR'S ASSISTANT [facility] [employer] [facility]-CENTRAL LAB BLOOD BANK SPECIMEN EXPIRATION DATE/TIME 03/28/24 23:59 03/25/2024 10:56 PM DOCTOR'S ASSISTANT [facility] [employer]-CENTRAL LAB BLOOD BANK Blood BLOOD SPECIMEN / Unknown Butterfly / Unknown 03/25/2024 9:45 PM DOCTOR'S ASSISTANT 03/25/2024 10:12 PM DOCTOR'S ASSISTANT Krista Silva MD BLOOD BANK Final Resul t [facility] [address] [place] [id number] [place] [address] * (ABNORMAL) Platelet Count (03/25/2024 9:45 PM DOCTOR'S ASSISTANT) PLATELET COUNT 164 140 - 440 thou/cu mm 03/25/2024 10:18 PM DOCTOR'S ASSISTANT [facility] TRAL LABORATORY MPV 11.3(H) 6.5 - 11.0 fL 03/25/2024 10:18 PM DOCTOR'S ASSISTANT [facility] TRA LABORATORY Blood BLOOD SPECIMEN / Unknown Butterfly / Unknown 03/25/2024 9:45 PM DOCTOR'S ASSISTANT 03/25/2024 10:12 PM DOCTOR'S ASSISTANT Krista Silva MD HEMATOLOGY Final Resul t [facility] [address] [place] [id number], [place] * (ABNORMAL) Hemoglobin (03/25/2024 9:45 PM DOCTOR'S ASSISTANT) HEMOGLOBIN 11.8(L) 12.0 - 16.0 g/dL 03/25/2024 10:18 PM DOCTOR'S ASSISTANT [facility] MCV 93 80 - 100 fL 03/25/2024 10:18 PM DOCTOR'S ASSISTANT [facility] Blood BLOOD SPECIMEN / Unknown Butterfly / Unknown 03/25/2024 9:45 PM DOCTOR'S ASSISTANT 03/25/2024 10:12 PM DOCTOR'S ASSISTANT Krista Silva MD HEMATOLOGY Final Resul t [facility] [address] [place] [address], [place] * HEMOGLOBIN EXTERNAL (02/28/2024 4:46 PM DOCTOR'S ASSISTANT) EXTERNAL HEMOGLOBIN 10.9 g/dL [facility] Blood BLOOD SPECIMEN / Unknown [facility] LAB[facility] Final Result [facility] [employer] CENTRAL LAB [address] [place] [address] * HIV EXTERNAL (08/05/2023 12:06 PM CDT) EXTERNAL HIV Negative [facility] [employer] CENTRAL LAB Blood BLOOD SPECIMEN / Unknown [facility] LAB[facility] Final Result [employer] CENTRAL LAB [address] [place] [address] from Last 3 Months or Most Recently Relevant to Health Maintenance Insurance [facility] ADVANTAGE PLAN MEDICAID Advance Directives * Full Code (Latest Code Status on File) Date Activated Date Inactivated Comments 03/25/2024 8:11 PM 03/27/2024 8:07 PM Question Answer Comments Code Status Discussion: Reviewed Preferences Care Teams Jewel Bearing Polisher Relationship Specialty Start Date End Date Pcp, No . PCP - General 03/15/24
--- OUTSIDE RECORDS SUMMARY | 2024-05-22 21:06 | XMS_ITS | Encounter Summary ---
Author Organization [employer] Address [address] [place] [address] Care Team Providers Care Corn Cooker Name Role Phone Josefina Bolanos MD Primary Care Provider [phone] Encounter Details Date Type Department Care Team (Late st Contact Info) Description 2000 Office Visit [facility] [address] [place] [address] Robles Jo MD [address] [place], [place] [phone] Social History Tobacco Use Types Packs/Day Years Used Date Smoking Tobacco: Never Assessed Comments Unknown Sex and Gender Information Value Date Recorded Sex Assigned at Not on file Legal Sex Female 5:19 AM CDT Gender Identity Not on file Sexual Orientation Not on file documented as of this encounter Progress Notes * Robles Jo - 2000 12:00 AM CDTS: 9-day-old was born at [facility]. Labor was induced at 38 1/2 weeks. [...] documented as of this encounter Care Teams Corn Cooker Relationship Specialty [place] [address] [place] [address] PCP - General Family Practice 05/30/20 documented as of this encounter
--- OUTSIDE RECORDS SUMMARY | 2024-05-22 21:06 | XMS_ITS | Encounter Summary ---
Author Organization [employer] Address [address], [place] [address] Care Team Providers Care Meat Wrapper Name Role Phone Josefina Bolanos MD Primary Care Provider [phone] Encounter Details Date Type Department Care Team ([facility] st Contact Info) Description 12/18/2015 Correspondence [facility] [address] [place], [place] [phone] [place] [address] [place], [place] [phone] SPORTS QUALIFYING PHYSICAL EXAM CLEARANCE FORM Social [...] documented as of this encounter Care Teams Meat Wrapper Relationship Specialty Start [place] [address] [place] [address] PCP - General Family Practice 05/30/20 documented as of this encounter
== END 2024-05-22 21:06 | disposition home or self-care (01) ==
PROVIDERS: Emergency Provider Emergency Medicine Emergency Medical Services
DX: S01.81XA Laceration without foreign body of other part of head, initial encounter (principal); V29.39XA Other motorcycle (driver) (passenger) injured in unspecified nontraffic accident, initial encounter
CPT/HCPCS: 12011; 99283; 99284